=== PATIENT | male | born 1975 | race American Indian/Alaskan Native ===

== ENCOUNTER 2018-06-10 06:13 | Emergency (ER) | payer MEDICAID, OTHER ==
[2018-06-10 09:17] LABS: ADD MAN DIFF? NO
[2018-06-10] MEDS: morphine 4 MG/ML VIAL IV (09:18)
[2018-06-10] MEDS: ONDANSETRON 4 MG INJ IV (09:18)
[2018-06-10] MEDS: CEFTRIAXONE 1 GM/50 ML (PMX) 50 ML IVPB (09:18)
[2018-06-10 09:19] LABS: WHITE BLOOD COUNT 8.3 10^3/ul (4.8-10.8)
[2018-06-10 09:19] LABS: BASOPHIL # 0.1 10^3/ul (0.0-0.1); BASOPHILS % 0.6 % (0.0-2.0); EOSINOPHILS # 0.1 10^3/ul (0.0-0.5); EOSINOPHILS % 1.2 % (0.0-7.0); HEMATOCRIT 43.1 % (42.0-52.0); HEMOGLOBIN 14.7 g/dl (14.0-18.0); LYMPHOCYTES # 1.5 10^3/ul (0.8-2.9); LYMPHOCYTES % 17.4 % (15.0-51.0); MEAN CORPUSCULAR HEMOGLOBIN 30.1 pg (29.0-33.0); MEAN CORPUSCULAR HGB CONC 34.1 g/dl (32.0-37.0); MEAN CORPUSCULAR VOLUME 88.3 fl (82.0-101.0); MEAN PLATELET VOLUME 8.7 fl (7.4-10.4); MONOCYTE # 1.4 10^3/ul (0.3-0.9); MONOCYTES % 16.4 % (0.0-11.0); NEUTROPHIL # 5.3 10^3/ul (1.6-7.5); NEUTROPHILS % 63.9 % (39.0-77.0); PLATELET COUNT 275 10^3/UL (140-415); RED BLOOD COUNT 4.88 10^6/ul (4.70-6.10); RED CELL DISTRIBUTION WIDTH 11.9 % (11.5-14.5)
[2018-06-10 09:38] LABS: PROTIME 12.3 Sec (11.9-14.9)
[2018-06-10 09:43] LABS: ALANINE AMINOTRANSFERASE 67 IU/L (13-69); ALBUMIN 4.2 g/dl (3.3-4.9); ALKALINE PHOSPHATASE 105 IU/L (42-121); ANION GAP 13 (5-13); ASPARTATE AMINO TRANSFERASE 38 IU/L (15-46); BILIRUBIN,INDIRECT 0.3 mg/dl (0-1.1); BILIRUBIN,TOTAL 0.3 mg/dl (0.2-1.3); BLOOD UREA NITROGEN 15 mg/dl (7-20); CALCIUM 9.9 mg/dl (8.4-10.2); CARBON DIOXIDE 27 mmol/L (21-31); CHLORIDE 103 mmol/L (97-110); CREATININE 0.65 mg/dl (0.61-1.24); Estimated GFR > 60 mL/min (>60); GLUCOSE 111 mg/dl (70-220); POTASSIUM 4.4 mmol/L (3.5-5.1); SODIUM 143 mmol/L (135-144)
[2018-06-10] MEDS: HYDROCODONE/APAP (10/325) TAB PO (11:08)
== END 2018-06-10 11:22 | disposition home or self-care (01) ==
LOC: FTE 06:13
DX: S61.201A Unspecified open wound of left index finger without damage to nail, initial encounter (principal); L03.012 Cellulitis of left finger; M79.645 Pain in left finger(s); W23.1XXA Caught, crushed, jammed, or pinched between stationary objects, initial encounter; Y92.9 Unspecified place or not applicable
CPT/HCPCS: 29125; 36415; 73140; 80053; 85025; 85610; 85651; 85730; 87040; 96365; 96375; 99284-25

== ENCOUNTER 2018-06-11 12:34 | Emergency (ER) | payer MEDICAID ==
[2018-06-11 18:31] LABS: ADD MAN DIFF? NO
[2018-06-11 18:34] LABS: WHITE BLOOD COUNT 12.4 10^3/ul (4.8-10.8)
[2018-06-11 18:34] LABS: BASOPHIL # 0.1 10^3/ul (0.0-0.1); BASOPHILS % 0.4 % (0.0-2.0); EOSINOPHILS # 0.1 10^3/ul (0.0-0.5); EOSINOPHILS % 0.7 % (0.0-7.0); HEMATOCRIT 42.2 % (42.0-52.0); HEMOGLOBIN 14.2 g/dl (14.0-18.0); LYMPHOCYTES # 1.8 10^3/ul (0.8-2.9); LYMPHOCYTES % 14.5 % (15.0-51.0); MEAN CORPUSCULAR HEMOGLOBIN 29.8 pg (29.0-33.0); MEAN CORPUSCULAR HGB CONC 33.6 g/dl (32.0-37.0); MEAN CORPUSCULAR VOLUME 88.7 fl (82.0-101.0); MEAN PLATELET VOLUME 8.7 fl (7.4-10.4); MONOCYTE # 1.4 10^3/ul (0.3-0.9); NEUTROPHILS % 72.8 % (39.0-77.0); PLATELET COUNT 300 10^3/UL (140-415); RED BLOOD COUNT 4.76 10^6/ul (4.70-6.10); RED CELL DISTRIBUTION WIDTH 11.9 % (11.5-14.5)
[2018-06-11 18:55] LABS: ANION GAP 11 (5-13); BLOOD UREA NITROGEN 17 mg/dl (7-20); CALCIUM 9.6 mg/dl (8.4-10.2); CARBON DIOXIDE 29 mmol/L (21-31); CHLORIDE 102 mmol/L (97-110); CREATININE 0.69 mg/dl (0.61-1.24); Estimated GFR > 60 mL/min (>60); GLUCOSE 105 mg/dl (70-220); POTASSIUM 4.4 mmol/L (3.5-5.1); SODIUM 142 mmol/L (135-144)
[2018-06-11] MEDS: DEXAMETHASONE 10 MG/ML 1 ML INJ IV (19:12)
[2018-06-11] MEDS: LIDOCAINE 4% CR TOP (19:12)
[2018-06-11] MEDS: morphine 2 MG INJ IV (19:13)
[2018-06-11] MEDS: CEFAZOLIN 2 GM/50 ML (PMX) 50 ML IVPB (19:18)
[2018-06-11] MEDS ORDERED: BUPIVACAINE 0.25% (MPF) 10 ML 10 ML VIAL INJ (22:00)
[2018-06-11] MEDS: BUPIVACAINE 0.25% (MPF) 30 ML INJ INJ (22:12)
[2018-06-11] MEDS: VANCOMYCIN 1 GM (PMX) 250 ML IVPB (22:29)
[2018-06-12] MEDS: CEFTRIAXONE 2 GM/50 ML (PMX) 50 ML IVPB (01:12)
[2018-06-12] MEDS: IBUPROFEN 800 MG TAB PO (07:36)
== END 2018-06-12 07:25 | disposition left against medical advice (07) ==
LOC: FTE 12:34 → E/R 06-12 07:25
DX: M65.842 Other synovitis and tenosynovitis, left hand (principal); R40.2142 Coma scale, eyes open, spontaneous, at arrival to emergency department; R40.2252 Coma scale, best verbal response, oriented, at arrival to emergency department; R40.2362 Coma scale, best motor response, obeys commands, at arrival to emergency department
CPT/HCPCS: 36415; 80048; 83605; 85025; 96365; 96366; 96367; 96375; 99284-25

== ENCOUNTER 2018-10-13 10:25 | Emergency (ER) | payer MEDICAID ==
[2018-10-13] MEDS: LIDOCAINE 1% (MPF) 5 ML VIAL INJ (10:58)
[2018-10-13] MEDS: HYDROCODONE/APAP (5/325) TAB PO (10:58)
[2018-10-13] MEDS: ONDANSETRON (ODT) 4 MG TAB ODT (10:58)
[2018-10-13] MEDS: CEFAZOLIN 1 GM INJ IM (12:11)
== END 2018-10-13 12:42 | disposition home or self-care (01) ==
LOC: FTE 10:25
DX: S62.630A Displaced fracture of distal phalanx of right index finger, initial encounter for closed fracture (principal); W26.8XXA Contact with other sharp object(s), not elsewhere classified, initial encounter; Y92.9 Unspecified place or not applicable; Z79.82 Long term (current) use of aspirin
CPT/HCPCS: 12001; 73140; 96372; 99284-25